=== PATIENT | female | born 1935 | race Caucasian/White ===

== ENCOUNTER → 2019-01-01 | Outpatient (CLI) | payer MEDICARE, BC ==
--- NOTE | 2019-01-01 16:04 | NEURO WORKBENCH EEG REPORT ---
EEG Report Patient: Ann Vega ID: [id number] Referring Doctor: Mark Hernandez MD DOS: 01/01/2019 Medications: Simvastatia, ambien, caltrate, lisinopril, omperazole History This is a 83 year old right handed woman with a history of hypertension who has been having episodes of syncope for the past 6 weeks in the mornings. The patient had 2 hours of sleep. This EEG was requested for syncope. EEG Interpretation This EEG was recorded in the awake, drowsy, and sleep states. The awake EEG is characterized by a well-organized background with a well-developed and reactive posterior dominant rhythm of 8Hz. Drowsiness is characterized by slowing of the background rhythms. Vertex waves and sleep spindles were seen in the midline head regions. Photic stimulation resulted in a moderately good driving response. There were no epileptiform abnormalities. The EKG showed a regular rhythm. EEG Classification Generalized background slowing, mild EEG Impression This EEG is mildly abnormal. The background is mildly slow for age. If clinically indicated, a repeat EEG without sleep deprivation may be considered. INTERPRETING NEUROLOGIST: Marcia Ricketts MD, FRCPC Board Certified in Neurology, with special qualification in Child Neurology, and in Clinical Neurophysiology [facility]
== END ==
LOC: NEURO 12:37
PROVIDERS: ATTEND Pediatrics
DX: R55 Syncope and collapse (principal); R26.89 Other abnormalities of gait and mobility
CPT/HCPCS: 95819